=== PATIENT | female | born 1955 | race Caucasian/White ===

== ENCOUNTER 2018-02-10 12:49 | Emergency (ER) | payer BC, OTHER ==
[2018-02-10] MEDS ORDERED: Lidocaine 1% with EPINEPHrine 1:100,000 20 ML MDV INJECT ONE (13:03)
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
--- NOTE | 2018-02-10 14:13 | CT ---
Head CT Technique: Multiple axial sections through the brain were obtained. Intravenous contrast was not utilized. Comparison: No previous intracranial imaging. Findings: Soft tissue injury is identified within the left frontal scalp. No radiopaque foreign object is seen within the soft tissues. No underlying calvarial fracture is seen. Small retention cyst is felt to be present within the right side of the sphenoid sinus which measures 8 mm. Other visualized sinuses are clear. Ventricles along the basal cisterns and sulci over the convexities are within normal limits for the patient's age. No abnormal parenchymal densities are seen. No evidence of intracranial hemorrhage. No midline shift or mass effect is seen. Impression: 1. Soft tissue injury within the left frontal scalp. 2. No acute intracranial abnormality is seen. No skull fracture is seen. 3. Incidental sinus finding as noted above. Diagnostic code #2
[2018-02-10] MEDS ORDERED: Ondansetron 4 MG Tab.DIS PO ONE (14:18)
== END 2018-02-10 14:50 | disposition home or self-care (01) ==
LOC: JD.ED 12:49 → EEVIPCON 12:49 → JD.ED 14:50
DX: S01.01XA Laceration without foreign body of scalp, initial encounter (principal); Z79.82 Long term (current) use of aspirin; Z79.899 Other long term (current) drug therapy; Z88.5 Allergy status to narcotic agent; V89.2XXA Person injured in unspecified motor-vehicle accident, traffic, initial encounter; V49.49XA Driver injured in collision with other motor vehicles in traffic accident, initial encounter
CPT/HCPCS: 12002; 70450; 99284; A9270; 13121; 99283